=== PATIENT | female | born 1955 | race Caucasian/White ===

== ENCOUNTER 2024-06-06 01:03 | Day surgery (SDC) | payer MEDICARE, SELFPAY ==
[2024-05-30 13:11] VITALS: BMI 19.3
--- NOTE | 2024-05-30 13:23 | PC.NURSE ---
Report to the Outpatient Waiting Room, entrance under the green pavilion located off [facility], at time __0700am on date _06/06/24 . Planned Procedure Time: _0900am .? Time changes happen often and if your time is changed the preop area will call you the afternoon before. - You and your visitor will be asked to self-screen and do not enter if you have any COVID symptoms. Please call surgeon if you need to reschedule. - A mask is optional within the hospital at this time. Patients may have clear liquids (water, carbonated beverages, clear teas, apple juice) until 3 hours prior to surgery with a maximum of 20 ounces. - No food from midnight until time of surgery and no smoking, or chewing tobacco (or any form of nicotine). No chewing gum, candy or mints. (0600am) Take only the following medications with a SIP of water on the morning of surgery: None DO NOT STOP ANY OF YOUR OTHER PRESCRIPTION MEDICATIONS PRIOR TO SURGERY EXCEPT THE FOLLOWING Hold all vitamins and supplements for 3 days per anesthesiologist. Date to take last dose__06/02/24 Please no make-up, nail namibian, hairspray, perfume, deodorant, or body powder the day of surgery.? No jewelry (including any body piercings) or valuables the day of surgery, leave them at home.? Please take a shower or bath the night before, or the morning of, surgery with an antibacterial soap.? Wear comfortable, loose fitting clothing.? - Jewelry must be removed prior to entering the operating room.? Rings and piercings that are not removed may be cut off. - The hospital will not accept responsibility for valuables.? - Please leave all valuables, including medications, at home the day of surgery. If you are going home after surgery, a licensed sweeper driver must drive you home.? - NO public transportation without another adult if you receive anesthesia. - We recommend that an adult stay with you for 24 hours following discharge. - We also recommend that you do not drive, make important decision, drink alcoholic beverages, or take any drugs that were not prescribed by your health care provider for at least 24 hours after your discharge time. Follow any additional instructions given to you from your surgeon. Telephone instructions given to __Patient and asked if any additional questions and then verbalized understanding. Patient advised to call surgeon office or pre surgery nurse liaison [phone] if any additional questions.
--- OUTSIDE RECORDS SUMMARY | 2024-06-06 01:06 | XMS_ITS ---
Author Organization [facility] Planning Address [address] [place] [address] Care Team Providers Care Nuts And Bolts Assembler Name Role Phone Sofi De Leon Primary Care Provider [phone] REASON FOR VISIT Test Results Encounters Encounter Location Date Provider Diagnosis [address] [address] 04/08/2024 Sofi Aaron Plan Of Treatment No Information Progress Notes * Yesika CHARLESOB: [birth year] (68 yo F)Acc No.[id number]:04/08/2024 Patient: Kevin YISELEFERomelia :1955 A ge:68 Y S ex:Female Address:[address], [place], [address] * true * Date: Generated for Desiraei ng/Faelenog/eTransmitting on: 0 06/06/2024 01:06 AM FRAME ASSEMBLER
--- OUTSIDE RECORDS SUMMARY | 2024-06-06 01:06 | XMS_ITS ---
Author Organization [facility] Planning Address [address] [place] [address] Care Team Providers Care Bradley Linebacker Crewmember Name Role Phone Sofi De Leon Primary Care Provider [phone] REASON FOR VISIT Labs Encounters Encounter Location Date Provider Diagnosis [address] [address] 04/19/2024 Sofi Aaron Plan Of Treatment No Information Progress Notes * Yesika CHARLESOB: [birth year] (68 yo F)Acc No.[id number]:04/19/2024 Patient: Kevin YISELEFERomelia :1955 A ge:68 Y S ex:Female Address:[address], [place], [address] * true * Date: Generated for Desiraei ng/Faelenog/eTransmitting on: 0 06/06/2024 01:05 AM TRAFFIC SIGNAL SUPERVISOR MAINTENANCE
--- OUTSIDE RECORDS SUMMARY | 2024-06-06 01:06 | XMS_ITS ---
Author Organization [facility] Planning Address [address] [place] [address] Care Team Providers Care Heavy Coil Winder Name Role Phone Sofi De Leon Primary Care Provider [phone] REASON FOR VISIT Test Results Encounters Encounter Location Date Provider Diagnosis [address] [address] 04/27/2024 Sofi Aaron Plan Of Treatment No Information Progress Notes * Yesika CHARLESOB: [birth year] (68 yo F)Acc No.[id number]:04/27/2024 Patient: Kevin YISELEFERomelia :1955 A ge:68 Y S ex:Female Address:[address], [place], [address] * true * Date: Generated for Desiraei ng/Faelenog/eTransmitting on: 0 06/06/2024 01:06 AM HEAD PORTER BAGGAGE
--- OUTSIDE RECORDS SUMMARY | 2024-06-06 01:06 | XMS_ITS | Patient Health Record ---
Author Organization [facility] OF [facility] Address [address] [facility] [address] [place] [address] Care Team Providers Care Procedure Writer Name Role Phone UNKNOWN, UNKNOWN Primary Care Provider Cash Love Unavailable Allergies Allergen (clinical drug ingredient) Drug/Non Drug Allergy documented on EMR Reaction Allergy Type Onset Date Status No Known Drug Allergy Unknown Drug Allergy Active No Known Food Allergy Unknown Drug Allergy Active Reason For Referral No Information Medications Medication SIG (Take, Route, Frequency, Duration) Notes Start Date End Date Status Estradiol Active Multivitamin Active Social History Tobacco Use: Social History Observation Description Date Details (start date - stop date) Never Smoker NA - NA Tobacco Use/Smoking Question Answer Notes Are you a nonsmoker Problems Problem Type SNOMED Code ICD Code Onset Dates Problem Status W/U Status Risk Notes Problem 867864431 Porokeratosis (Q82.8) Active confirmed Problem 976158197 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 Problem 157011581 Plantar fat pad atrophy of right 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
--- OUTSIDE RECORDS SUMMARY | 2024-06-06 01:07 | XMS_ITS | Clinical Summary ---
Author Organization [facility] Address [address] [place] [address] Care Team Providers Care Welder Gas Name Role Phone Unavailable Primary Care Provider Unavailabl e Social History Tobacco Use Types Packs/Day Years Used Date Smoking Tobacco: Never Assessed Comments Unknown Sex and Gender Information Value Date Recorded Sex Assigned at Not on file Legal Sex Female 5:36 PM CDT Gender Identity Not on file Sexual Orientation Not on file Last Filed Vital Signs Vital Sign Reading Time Taken Comments Blood Pressure 118/72 01/22/2018 10:21 AM CDT Pulse 78 01/22/2018 10:21 AM CDT Temperature - - Respiratory Rate - - Oxygen Saturation - - Inhaled Oxygen Concentration - - Weight 80.5 kg (177 lb 7 oz) 01/22/2018 10:21 AM CDT Height 177.8 cm (5' 10 ) 01/22/2018 10:21 AM CDT Body Mass Index 25.46 01/22/2018 10:21 AM CDT Plan of Treatment Health Maintenance Due Date Last Done Comments Colorectal Cancer Screening Colonoscopy (10 Years) 1955 Hepatitis C 10/08/1973 DTaP, Tdap and Td Vaccines ( 1 - Tdap) 10/08/1974 Mammogram Screening 1995 Zoster Vaccines (1 of 2) 10/08/2005 Dexa Scan (General) 10/08/2020 Pneumococcal Vaccine: 65+ Ye ars (1 of 1 - PCV) 10/08/2020 COVID-19 Vaccine ( - 2023-2 5 season) 2023 Influenza Adult (#1) 2024 01/22/2018 RSV Immunization or 60+ Years (1 - 1-dose 75+ series) 10/08/2030 Meningococcal B Vaccine Aged Out No l onger eligible based on patient's age to complete this topic Meningococcal Vaccine Aged Out No sandra osvaldo eligible based on patient's age to complete this topic RSV Immunizations Under 20 Months Aged Out No longer eligible based on patient's age to complete this topic
--- OUTSIDE RECORDS SUMMARY | 2024-06-06 01:07 | XMS_ITS ---
Author Organization 1 OF [facility] Address [address] [place] [address] Care Team Providers Care Vice President Industrial Relations Name Role Phone UNKNOWN, UNKNOWN Primary Care Provider Cash Love Unavailable [phone] Encounters Encounter Location Date Provider Diagnosis [facility] [address] [place] [address] 01/12/2023 Cash Hilton Plan Of Treatment No Information Progress Notes * Yesika CHARLESOB: [birth year] (67 yo F)Acc No.[id number]:01/12/2023 Patient: Kevin singh Romelia :1955 A ge:67 Y S ex:Female Address:[address] [place] [address] * true * Date: Generated for Ashley myers/Shweta/eTransmitting on: 0 06/06/2024 01:06 AM FINANCE INSURANCE MANAGER
--- OUTSIDE RECORDS SUMMARY | 2024-06-06 01:07 | XMS_ITS ---
Author Organization [facility] Address [address] [facility] [address] [place], [place] [address] Care Team Providers Care Rural Carrier Associate Name Role Phone Answer, Declined Unavailable Unavailable YASMINE LONG Unavailable [phone] REASON FOR VISIT The patient reports that the last treatment for her porokeratosis in November lasted until just recently. The lesions hurt and feel like stepping on a pebble Vital Signs Height 70 in 07/01/2023 Weight 145 lbs 07/01/2023 BMI 20.8 kg/m2 07/01/2023 Height-cm 177.8 cm 07/01/2023 Weight-kg 65.77 kg 07/01/2023 Encounters Encounter Location Date Provider Diagnosis [facility] [address] [facility] [address] [place], [place] [id number] 07/01/2023 YASMINE LONG Other eccrine sweat disorders L74.8 ; Metatarsalgia, left foot M77.42 and Left foot pain M79.672 Assessments Encounter Date Diagnosis (ICD Code) Assessment Notes Treatment Notes Treatment Clinical Notes Section Notes 07/01/2023 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 The patient was given after care instructions. Follow up in two weeks to debride and re-ablate as needed. 07/01/2023 Metatarsalgia, left foot (ICD-10 - M77.42) Metatarsalgia: I discussed anti-inflammatory treatment options and various means of immobilization with the patient. I educated the patient on icing and stretching, supportive shoegear, and the use of orthotic devices and bracing. 07/01/2023 Left foot pain (ICD-10 - M79.672) Plan Of Treatment Treatment Notes Assessment Notes Other eccrine sweat disorders Porokeratosis: The lesions were debrided to normal appearing skin and then chemically ablated with pyrogallic acid and covered with an occlusive dressing. The patient was given after care instructions. Follow up in two weeks to debride and re-ablate as needed. Metatarsalgia, left foot Metatarsalgia: I discussed anti-inflammatory treatment options and various means of immobilization with the patient. I educated the patient on icing and stretching, supportive shoegear, and the use of orthotic devices and bracing. Next Appt Details Follow Up: 3 Weeks, Reason: Debride and ablate as needed Progress Notes * Yesika GALEOB: [birth year] (68 yo F)Acc No.[id number]:07/01/2023 Patient: Romelia NEAL Provider: Kevin Long DPM :1955 A ge:67 Y S ex:Female Date:07/01/2023 Address:[address] [place], [place] [id number] Subjective: * Chief Complaints: * 1 . The patient reports that the last treatment for her porokeratosis in November lasted until just recently. The lesions hurt and feel like stepping on a pebble. * HPI: H PI: New Complaint E stablished patient presents with a new complaint. P atient complains of an issue to pain on the lateral side of the left foot due to a Callus. Patient has been treated for this in the past. Patient states it has been painful since returning. D uration of problem is 3 months. P atient denies any injury. M A:SS. * ROS: G eneral / Constitutional: Patient denies c hills, fever, weakness, night sweats. M usculoskeletal: Patient denies c hildhood foot problems, weakness. P atient complains of j oint pain. P eripheral Vascular: Patient denies u lceration of feet, cold extremities. ? S kin: Patient denies u lcerations, discoloration. P atient complains of c alluses and corns. N eurologic: Patient denies b alance difficulty, confusion, difficulty speaking, dizziness. * Medical History: C olon cancer, Leg/Feet cramps, Varicose veins, Phlebitis, GERD. Objective: * Vitals: W t:145lbs, Wt-k.77 kg, Ht: 70 in, Ht-cm: 177.8 cm, BMI:20.8Index, Body Surface Area: 1.8. * Examination: C onstitutional: Constitutional T he patient is awake, alert, well developed, well groomed and well nourished.. D ermatologic: Skin findings: S kin is warm, dry, supple with no breaks in the skin.. Hypertrophic / hyperkeratotic lesion: h yperkeratotic skin lesion to the plantar aspect of the left 5th metatarsal head. Debridement demonstrates a nucleated core. V ascular: Dorsalis pedis pulse: 2 /4, bilateral. Posterior tibial pulse: 2 /4, bilaterally. Capillary refill: l ess than 3 seconds. Edema: N o edema, bilateral. N eurologic: Gross sensation G ross sensation is intact to light touch..? M usculoskeletal: Muscle Strength M uscle strength is 5/5 in regards to dorsiflexion, plantarflexion, inversion, and eversion in bilateral lower extremities.. Pain on palpation p ain on palpation to the 5th metatarsal head of the left foot. Assessment: * Assessment: 1. M etatarsalgia, left foot - M77.42 (Primary) 2 . O ther eccrine sweat disorders - L74.8 3 . L eft foot pain - M79.672 Plan: * Treatment: 2. O ther eccrine sweat disorders Notes: Porokeratosis: The lesions were debrided to normal appearing skin and then chemically ablated with pyrogallic acid and covered with an occlusive dressing. The patient was given after care instructions. Follow up in two weeks to debride and re-ablate as needed. * Follow Up: 3 Weeks (Reason: Debride and ablate as needed) * Billing Information: * Visit Code: 85087 Office Visit, Est Pt., Level 3. * Procedure Codes: * Sign off status: Completed true * Provider: Kevin Long DPM Date: 0 07/01/2023 Generated for Ashley Fitzgerald/Jesus on: 0 06/06/2024 01:07 AM REPLANTING MACHINE CREWMAN History and Physical Notes * HPI (History of Present Illness) Category Sub-Category Detail Notes Category Not es HPI New Complaint Established jordyn ent presents with a new complaint. Patient complains of an issue to pain on the lateral side of the left foot due to a Callus. Patient has been treated for this in the past. Patient states it has been painful since returning. Duration of problem is 3 months. Patient denies any injury. MA:SS Examination Category Sub-Category Detail Notes Category Not es Dermatologic Skin findings: Skin is warm, dr y, supple with no breaks in the skin. Hypertrophic / hyperkeratotic lesion: hy perkeratotic skin lesion to the plantar aspect of the left 5th metatarsal head. Debridement demonstrates a nucleated core Neurologic Gross sensation Gross sensation is intact to light touch. Vascular Dorsalis pedis pulse: 2/4, bilateral Edema: No edema, bilateral Capillary refill: less than 3 seconds Posterior tibial pulse: 2/4, bilaterally Musculoskeletal Muscle Strength Muscle strength is 5/5 in regards to dorsiflexion, plantarflexion, inversion, and eversion in bilateral lower extremities. Pain on palpation pain on palpation to the 5th metatarsal head of the left foot Constitutional Constitutional The patient is a wake, alert, well developed, well groomed and well nourished.
--- OUTSIDE RECORDS SUMMARY | 2024-06-06 01:08 | XMS_ITS | Clinical Summary ---
Author Organization [facility] [employer] Address [address] [place] [address] Care Team Providers Care Glass Loading Equipment Tender Name Role Phone Unavailable Primary Care Provider Unavailabl e Source Comments [facility] [employer],non-owned Affiliates and Associated Physician Practices is amultiple site organization consisting of ambulatory clinics and hospital sitesin [place], [place], [place] and [place]. This disclosure is being madepursuant to the Care Everywhere program and may not contain all information available regarding this patient. Last updated 18.[employer] Allergies No known active allergies Medications * Be aware that medications may not be up to date on this document. Alwaysverify current medications with the patient. Medication Sig Dispensed Refills Start Date End Date Status estradiol (CLIMARA) 0.06 MG/24HR patch Apply 1 patch to skin every 7 days Active progesterone 300 mg ERT 300 mg tablet Take 300 mg by mouth once daily Active Immunizations Name Administration Dates Next Due INFLUENZA VACCINE, QUADR. (F LUZONE; FLULAVAL; FLUARIX; AFLURIA QUADRIVALENT; 6MO+), 0.5 ML (IIV4) 01/10/2019 Social History Tobacco Use Types Packs/Day Years Used Date Smoking Tobacco: Never Smokeless Tobacco: Never Sex and Gender Information Value Date Recorded Sex Assigned at Not on file Gender Identity Not on file Sexual Orientation Not on file Last Filed Vital Signs Vital Sign Reading Time Taken Comments Blood Pressure 114/82 07/15/2018 3:30 PM CDT Pulse 90 07/15/2018 3:30 PM CDT Temperature 36.8 C (98.2 F) 07/15/2018 3:30 PM CDT Respiratory Rate 20 07/15/2018 3:30 PM CDT Oxygen Saturation 98% 07/15/2018 3:30 PM CDT Inhaled Oxygen Concentration - - Weight 78 kg (172 lb) 07/15/2018 3:30 PM CDT Height 179.1 cm (5' 10.5 ) 07/15/2018 3:30 PM CD T Body Mass Index 24.33 07/15/2018 3:30 PM CDT Plan of Treatment Health Maintenance Due Date Last Done Comments COLOGUARD (AGES 45-75) - COLON CA SCREENING 1955 COLON MONITORING 1955 COLONOSCOPY - COLON CA SCREENING 1955 CT COLONOGRAPHY - COLON CA SCREENING 1955 Colorectal Cancer Screening 1955 FIT - COLON CA SCREENING 1955 FLEX SIG - COLON CA SCREENING 1955 LIPID TESTING 1955 HEPATITIS C SCREENING 10/04/1973 DTAP/TDAP/TD VACCINES (1 - Tdap) 10/08/1974 PNEUMOCOCCAL VACCINE 50+ (1 of 1 - PCV) 10/08/2005 ZOSTER VACCINE (1 of 2) 10/08/2005 COVID-19 VACCINE (4 - season) 2023 02/28/2021, 06/20/2020, 05/15/2020 INFLUENZA VACCINE (#1) 2023 , 01/10/2019, 01/22/2018, Additional history exists DEPRESSION SCREENING 04/20/2024 MAMMOGRAM 02/18/2025 02/18/2023, 11/0 04/2022, 01/09/2022, Additional history exists Respiratory Syncytial Virus (RSV) Vaccine Pt: or over 60 yrs (1 - 1-dose 75+ series) 10/08/2030 BONE DENSITY TESTING Completed 02/07/2022, 09/28/2017, 10/13/2013 HEPATITIS B VACCINE Aged Out No longe r eligible based on patient's age to complete this topic HIB VACCINE Aged Out No longer eligi ble based on patient's age to complete this topic HPV VACCINE Aged Out No longer eligi ble based on patient's age to complete this topic MENINGOCOCCAL (Group B) VACCINE Aged Out No longer eligible based on patient's age to complete this topic MENINGOCOCCAL VACCINE Aged Out No sandra osvaldo eligible based on patient's age to complete this topic [facility] [employer] Employer [phone] (Work) [address] [place] [address] Romelia Charles Personal/Family Self 1955 [address] [place] [address]
--- OUTSIDE RECORDS SUMMARY | 2024-06-06 01:08 | XMS_ITS ---
Author Organization [facility] Address [address] [place], [place] [address] Care Team Providers Care Software Quality Automation Engineer Name Role Phone Answer, Declined Unavailable Unavailable YASMINE LONG Unavailable [phone] REASON FOR VISIT The patient tolerated the chemical ablation well. The porokeratosis on her left foot no longer hurts like it did Vital Signs Height 70 in 07/22/2023 Weight 145 lbs 07/22/2023 BMI 20.8 kg/m2 07/22/2023 Height-cm 177.8 cm 07/22/2023 Weight-kg 65.77 kg 07/22/2023 Encounters Encounter Location Date Provider Diagnosis [facility] [address] [facility] [address] [place], [place] [id number] 07/22/2023 YASMINE LONG Other eccrine sweat disorders L74.8 ; Metatarsalgia, left foot M77.42 and Left foot pain M79.672 Assessments Encounter Date Diagnosis (ICD Code) Assessment Notes Treatment Notes Treatment Clinical Notes Section Notes 07/22/2023 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 No evidence of porokeratosis noted. Patient advised to monitor this area, as well as to use emollients and keep pressure off this area with padding, inserts, or orthotics. Emollient: Recommend that the patient use an emollient such as osjf-uho-pwoyhia Eucerin cream, Vanicream, or other lotion to the affected area. 07/22/2023 Metatarsalgia, left foot (ICD-10 - M77.42) Metatarsalgia: I discussed anti-inflammatory treatment options and various means of immobilization with the patient. I educated the patient on icing and stretching, supportive shoegear, and the use of orthotic devices and bracing. 07/22/2023 Left foot pain (ICD-10 - M79.672) Plan Of Treatment Treatment Notes Assessment Notes Other eccrine sweat disorders Porokeratosis Resolved: The nonviable tissue was sharply debrided down to normal healthy appearing skin. No evidence of porokeratosis noted. Patient advised to monitor this area, as well as to use emollients and keep pressure off this area with padding, inserts, or orthotics. Emollient: Recommend that the patient use an emollient such as cjca-jha-mdoypya Eucerin cream, Vanicream, or other lotion to the affected area. Metatarsalgia, left foot Metatarsalgia: I discussed anti-inflammatory treatment options and various means of immobilization with the patient. I educated the patient on icing and stretching, supportive shoegear, and the use of orthotic devices and bracing. Next Appt Details Follow Up: prn, Reason: Progress Notes * JACKIECATHERINEYesikaOB: [birth year] (68 yo F)Acc No.[id number]:07/22/2023 Patient: Romelia NEAL Provider: Kevin Long DPM :1955 A ge:67 Y S ex:Female Date:07/22/2023 Address:[address] [place], [place] [id number] Subjective: * Chief Complaints: * 1 . The patient tolerated the chemical ablation well. The porokeratosis on her left foot no longer hurts like it did. * HPI: H PI: Follow Up Visit Chaim dao presents for follow up visit for Porokeratosis check on lateral side of the left foot. Chaim dao states their problem is improving. Patient states she has no complaints. M A:SS. * ROS: G eneral / [...] confusion, difficulty speaking, dizziness. * Medical History: Objective: * Vitals: W t:145lbs, Wt-k.77 kg, [...] 2. O ther eccrine sweat disorders Notes: Porokeratosis Resolved: The nonviable tissue was sharply debrided down to normal healthy appearing skin. No evidence of porokeratosis noted. Patient advised to monitor this area, as well as to use emollients and keep pressure off this area with padding, inserts, or orthotics. Emollient: Recommend that the patient use an emollient such as rolq-gfd-hqiyikk Eucerin cream, Vanicream, or other lotion to the affected area. * Follow Up: p rn * Billing Information: * Visit Code: 72873 Office Visit, Est Pt., Level 3. * Procedure Codes: * Sign off status: Completed true * Provider: Kevin Long DPM Date: 0 07/22/2023 Generated for Ashley myers/Shweta/Jesus on: 0 06/06/2024 01:07 AM COOK ENCHILADA History and Physical Notes * HPI (History of Present Illness) Category Sub-Category Detail Notes Category Not es HPI Follow Up Visit Patient presents for follow up visit for Porokeratosis check on lateral side of the left foot. Patient states their problem is improving. Patient states she has no complaints. MA:SS Examination Category Sub-Category Detail Notes Category [...]
--- OUTSIDE RECORDS SUMMARY | 2024-06-06 01:08 | XMS_ITS | Referral Summary ---
Author Organization [facility] [employer] Address [address] [place] [address] Care Team Providers Care Rfid Manager Name Role Phone Unavailable Primary Care Provider Unavailabl e Source Comments [facility] [employer],non-owned Affiliates and Associated Physician Practices is amultiple site organization consisting of ambulatory clinics and hospital sitesin [place], [place], [place] and [place]. This disclosure is being madepursuant to the Care Everywhere program and may not contain all information available regarding this patient. Last updated 18.[employer] Allergies No known active allergies Medications * [...] 07/15/2018 3:30 PM CDT Plan of Treatment Not on file [facility] [employer] [phone] (Work) [address] [place] [address] Romelia Charles Personal/Family Self 1955 [address] [place] [address]
--- OUTSIDE RECORDS SUMMARY | 2024-06-06 01:08 | XMS_ITS | Patient Health Summary ---
Author Organization [facility] Address [address] 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 This disclosure is being madepursuant to the Care Everywhere program and may not contain all information available regarding this patient. Last updated 18.[facility] Allergies No known active allergies Medications * Be aware that medications may not be up to date on this document. Alwaysverify current medications with the patient. * estradiol (CLIMARA) 0.06 MG/24HR patch Apply 1 patch to skin every 7 days * progesterone 300 mg ERT 300 mg tablet Take 300 mg by mouth once daily Immunizations * INFLUENZA VACCINE, QUADR. (FLUZONE; FLULAVAL; FLUARIX; AFLURIA QUADRIVALENT; 6MO+), 0.5 ML (IIV4)(Given 01/10/2019) Social History Tobacco Use Types Packs/Day Years [...] Mass Index 24.33 07/15/2018 3:30 PM CDT Procedures * DERMATOPATHOLOGY(Performed 09/02/2021) * DERMATOPATHOLOGY(Performed 09/25/2020) * DERMATOPATHOLOGY(Performed 09/04/2020) * XR ANKLE RIGHT 3VW OR MORE(Performed 07/15/2018) Performed for Acute right ankle pain * DERMATOPATHOLOGY(Performed 05/19/2014) Results * DERMATOPATHOLOGY (09/02/2021 12:00 AM CDT) Only the most recent of4 resultswithin the time period is included. Case Report Dermatopathology Report Case: [id number] Authorizing Provider: Luz Cole DO Collected: 09/02/2021 12:00 AM Ordering Location: [facility] D[facility] Lab Received: 09/03/2021 11:38 AM Pathologist: Keily Greco MD Specimen: Skin, right ant le 12:22 PM CDT DERMATOPATHOLOGY LABORATORY Final Diagnosis Specimen A. 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 The specimen consists of a shave biopsy measuring 5x4x1 mm. Jar 0. 12:22 PM CDT DERMATOPATHOLOGY LABORATORY Microscopic Description Specimen A. SKIN, right ant le: There is focal parakeratosis and spongiosis. The dermis shows a superficial and deep, perivascular and interstitial infiltrate of lymphocytes and eosinophils. Many of the eosinophils are present in the papillary dermis and occasional eosinophils are noted within the epidermis. COMMENT: The histological differential diagnosis includes contact dermatitis, the urticarial phase of bullous pemphigoid, and a hypersensitivity reaction. If there is clinical concern for a diagnosis of bullous pemphigoid consideration should be given to submitting tissue for direct immunofluorescence. 2 12:22 PM CDT DERMATOPATHOLOGY LABORATORY Disclaimer An external and internal positive and negative controls are appropriate for the histochemical, immunohistochemical and immunofluorescence stain(s) in this case (if any), except where stated explicitly. The performance characteristics of the stain(s) cited in this report were developed and its performance characteristic determined by the Dermatopathology Laboratory at [facility], directed by Dr. Niki Carballo. These tests need not be, and therefore are not, approved by the [place] Food and Drug Administration. The tests are used for clinical purposes. Billing Codes Specimen Charges Stain Charges 69504 1 2 12:22 PM CDT DERMATOPATHOLOGY LABORATORY Embedded Images 2 12:22 PM CDT DERMATOPATHOLOGY LABORATORY Pathology/Cytolog y TISSUE SPECIMEN FROM SKIN / Unknown 09/02/2021 09/03/2021 11:38 AM CDT Luz Cole DO LAB - PATHOLOGY/C YTOLOGY ORDERABLES DERMATOPATHOLOGY LABORATORY [facility] - Department of Dermatology [address] [phone] * XR ANKLE RIGHT 3VW OR MORE (07/15/2018 3:53 PM CDT) Anatomical Region Laterality Modality Lower Extremity Radiographic Vilma ging 07/15/2018 3:58 PM CDT Narrative 07/15/2018 3:58 PM CDT PROCEDURE: XR ANKLE RIGHT 3VW OR MORE 07/15/2018 3:58 PM HISTORY: Pain in right ankle and joints of right foot. COMPARISON: None Report: No displaced fracture, dislocation or aggressive bone lesion seen. Moderate soft tissue swelling about the lateral malleolus and probable small effusion. No radiopaque foreign body seen. Procedure Note Gerald Suh MD - 07/15/2018 PROCEDURE: XR ANKLE RIGHT 3VW OR MORE 07/15/2018 3:58 PM HISTORY: Pain in right ankle and joints of right foot. COMPARISON: None Report: No displaced fracture, dislocation or aggressive bone lesion seen. Moderate soft tissue swelling about the lateral malleolus and probable small effusion. No radiopaque foreign body seen. Aundrea Gregory APRN-COMMERCIAL FINANCE ANALYST DIAGNOSTIC IMAG ING ORDERABLES
--- OUTSIDE RECORDS SUMMARY | 2024-06-06 01:08 | XMS_ITS | Patient Health Record ---
Author Organization [facility] Planning Address [address] [address] Care Team Providers Care Candle Molder Name Role Phone Sofi De Leon Primary Care Provider Allergies No Known Allergies Results Component Value Reference Range Notes LIPID PANEL Reviewed date:04/27/2024 11:23:09 AM Interpretation: Performing Lab: Notes/Report: LDL-CHOLESTEROL 86 Reason For Referral No Information Medications Medication SIG (Take, Route, Fr equency, Duration) Notes Start Date End Date Status Estradiol 0.05 MG/24HR 1 patch to skin T ransdermal Two times a Week for 30 day(s) Active Progesterone 100 MG 3 caps Orally daikly Active Lexapro 10 MG 1 tablet Orally Once a day for 30 days 09/01/2023 Active Immunizations Vaccine Route Administration Date Status Comme nts Moderna Bivalent Covid-19 Va ccine 12 & UP BOOSTER Unknown 01/28/2022 Administered [id number]-ABWMU-07 Vaccine Unknown 05/15/2020 Administere d Wfosavu-SCDYN-76 Vaccine Unknown 06/20/2020 Administere d Qfxoyfb-GMCJK-23 Vaccine Unknown 09/06/2021 Administere d Non VFC Boostrix Unknown 09/13/2020 Administered Non VFC Fluarix Quad Unknown 02/17/2017 Administered Non VFC Fluarix Quad Unknown 01/22/2018 Administered Non VFC Fluarix Quad Unknown 01/10/2019 Administered Non VFC Flulaval Unknown 02/09/2020 Administered Non VFC TD adsorbed Unknown 12/09/1995 Administered PfizerAddonTV Covid-19 Vac cine (STATE STOCK) Unknown 02/28/2021 Administered X Fluad, Quad Unknown 03/03/2022 Administered X Fluad, Quad Unknown 02/28/2023 Administered X Flucelvax Quad Unknown 01/17/2016 Administered X Fluzone HD, Quad, Preserv Free Unknown 02/15/2021 Adm inistered Social History Tobacco Use: Social History Observation Description Date Details (start date - stop date) Never Smoker NA - NA Tobacco Use/Smoking Question Answer Notes Are you a nonsmoker Alcohol Screen (Audit-C) Question Answer Notes Did you have a drink contain ing alcohol in the past year? Yes How often did you have a dri nk containing alcohol in the past year? Monthly or less (1 point) Points 1 Interpretation Negative Tobacco use other than smoking: Question Answer Notes Are you an other tobacco user? No DAST Question Answer Notes Total Score: 0 Interpretation: No problems reported DAST-10 (2020 Edition) Question Answer Notes 1. Have you used drugs other than those required for medical reasons? No 2. Do you abuse more than one drug at a time? No 3. Are you always able to st op using drugs when you want to? Yes 4. Have you had blackouts or flashbacks as a result of drug use? No 5. Do you ever feel bad or guilty about your miguel g use? No 6. Does your spouse (or pare nts) ever complain about your involvement with drugs? No 7. Have you neglected your f amily because of your use of drugs? No 8. Have you engaged in illeg al activities in order to obtain drugs? No 9. Have you ever experienced withdrawal symptoms (felt sick) when you stopped taking drugs? No 10. Have you had medical pro blems as a result of your drug use (e.g., memory loss, hepatitis, convulsions, bleeding etc.)? No Results: 0 Interpretation of Score: No problems reported Tobacco Control (Standard) Question Answer Notes Tobacco use: Nonsmoker AUDIT-C (Standard) Question Answer Notes Did you have a drink containing alcohol in the p ast year? 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 Vital Signs Heart Rate 69 /min 09/01/2023 Temperature 97.7 degrees Fahrenheit 09/01/2023 Respiratory Rate 16 /min 09/01/2023 Blood pressure diastolic 75 mm Hg 09/01/2023 Oximetry 95 % 09/01/2023 Height-cm 179.07 cm 09/01/2023 Weight-kg 67.49 kg 09/01/2023 Height 70.5 in 09/01/2023 Blood pressure systolic 134 mm Hg 09/01/2023 Weight 148.8 lbs 09/01/2023 BMI 21.05 kg/m2 09/01/2023 Encounters Encounter Location Date Provider Diagnosis [address] [address] 09/01/2023 Sofi Aaron Hypertension, unspecified type I10 ; Grief reaction F43.21 and Osteopenia of hip, unspecified laterality M85.[address] [address] 08/24/[address] [address] 10/07/2023 Sofi Sweet [address] [address] 11/02/2023 Sofi Sweet [address] [address] 01/26/2024 Sofi Sweet [address] [address] 03/07/2024 Sofi Sweet [address] [address] 04/08/2024 Sofi Sweet [address] [address] 04/27/2024 Sofi Sweet [address] [address] 04/08/2024 Sofi Aaron [facility] [address] [place] [address] 04/19/2024 Sofi Aaron Assessments Encounter Date Diagnosis (ICD Code) Assessment Notes Treatment Notes Treatment Clinical Notes Section Notes 09/01/2023 Hypertension, unspecified type (ICD-10 - I10) will start meds, if not helping let us know, if not safe will go to er or call us, is taking calcium for osteopenia 09/01/2023 Grief reaction (ICD-10 - F43.21) will start meds, if not helping let us know, if not safe will go to er or call us, is taking calcium for osteopenia 09/01/2023 Osteopenia of hip, unspecified laterality (ICD-10 - M85.859) will start meds, if not helping let us know, if not safe will go to er or call us, is taking calcium for osteopenia 09/01/2023 Other is eating, is mourning , working on getting things together, will get labs, , Escitalopram Oral Tablet (ESCITALOPRAM - ORAL) [FDB] material was published will start meds, if not helping let us know, if not safe will go to er or call us, is taking calcium for osteopenia Plan Of Treatment No Information Insurance Providers Payer Name Payer Address Payer Phone Subscriber Number Group Number Insured Name Patient Relationship to Insured Coverage Start Date Coverage End Date [place] [employer] [address] [place], [place] [id number] Romelia Charles Self - patient is the insured 3 Aet[employer] II [address] [place], [place] [id number] Romelia Charles Self - patient is the insured 3 Medical (General) History Medical History History ICD Code HTN Surgical History Surgery Date(Month/Year) skin cancer off chin 2020 microphelpectomy
[2024-06-06 07:08] VITALS: BP 141/68; PULSE 72; RESP 18; TEMP 37.1; O2SAT 100
--- NOTE | 2024-06-06 07:20 | WPDHPUPDATE1 ---
History and Physical Update Update Date/Time: 06/06/24 07:20 History and Physical has been reviewed, including an updated exam of the patient. There are NO changes in the patient's condition. Risks, benefits, and alternatives have been discussed and questions answered. Patient agrees to proceed with procedure.
--- NOTE | 2024-06-06 07:20 | PM.HPGS ---
History of Present Illness History of Present Illness Consent: Risks, benefits, and alternatives have been discussed and questions answered. Patient agrees to proceed with procedure. Chief complaint: Thickened Endometrium Narrative: Romelia Charles is a 68 year old female with a pelvic ultrasound showing a thickened endometrium at 1.6cm. Patient denies vaginal bleeding. It was recommended to undergo evaluation with hysteroscopy D&C. Risks of infection, bleeding, perforation, and possible pathology are reviewed. Review of Systems Review of Systems: not repeated day of surgery; patient states no changes in status PMFSH Past Medical History Medical History (Updated 06/06/24 @ 07:25 by Navya Parks MD) Basal cell carcinoma on her nose removed 2014 (normal spontaneous vaginal delivery) x1 HTN (hypertension) Colon cancer 2010 Endometriosis Mitral valve prolapse Surgical History Surgical History (Updated 06/06/24 @ 07:24 by Navya Parks MD) History of colon resection History of bilateral tubal ligation with History of x1 History of laparoscopy x2 status post right oophorectomy Social History Social History Smoking status: Never smoker Alcohol intake: never Substance use: never Living arrangements: alone Spiritual care concerns: No Meds Home Medications and Allergies Home Medications ?Medication ?Instructions ?Recorded ?Confirmed ?Type ascorbic acid (vitamin C) 500 mg 500 mg PO DAILY 05/30/24 05/30/24 History chewable tablet (Fruit C-500) cholecalciferol (vitamin D3) 50 50 mcg PO DAILY 05/30/24 05/30/24 History mcg (2,000 unit) capsule (Vitamin D3) estradiol 0.06 mg/24 hr weekly 1 patch topical WEEKLY 05/30/24 05/30/24 History transdermal patch melatonin 5 mg capsule 5 mg PO HS PRN sleep 05/30/24 05/30/24 History afbkxyxg-dwnihjg-xnty-lutein tablet 1 tablet PO DAILY 05/30/24 05/30/24 History progesterone micronized 100 mg 300 mg PO HS 05/30/24 05/30/24 History capsule Allergies Allergy/AdvReac Type Severity Reaction Status Date / Time No Known Allergies Allergy Verified 05/30/24 13:05 Vital Signs Vital Signs - 24 hr 06/06/24 07:08 Temperature 98.7 F Pulse Rate 72 Respiratory Rate 18 Blood Pressure 141/68 H Pulse Oximetry 100 Oxygen Delivery Room Air Exam Const: General: healthy appearing and alert Orientation/consciousness: patient oriented x3 Resp: Effort & Inspection: normal respiratory effort GI: GI Palp: Yes Soft to palpation, No Tenderness to palpation present (GI) and No Palpable mass present : External Female Exam: normal external appearance Speculum Exam - Vagina: normal appearance of the vagina and normal vaginal discharge Speculum Exam - Cervix: normal appearance of the cervix Bimanual exam- vagina & uterus: uterine size normal and consistency normal Bimanual Exam- Adnexa, other: normal adnexae and No adnexal tenderness Neuro: General: patient oriented x3 Assessment and Plan Assessment and plan (1) Thickened endometrium: Code(s): R93.89 - Abnormal findings on diagnostic imaging of other specified body structures Status: Acute Assessment and Plan: plan to proceed with D&C hysteroscopy
[2024-06-06] MEDS: ACETAMINOPHEN 500 MG TABLET 1000 MG PO (07:45)
--- NOTE | 2024-06-06 08:58 | P.PNAN_ITS ---
Anes - Initial Pre Proc Eval Procedure: Operation Date: 06/06/24 09:30 Proposed Procedures p Hysteroscopy Dilation and Curettage - Navya Parks MD Date/Time: 06/06/24 08:58 Surgeon: Navya Parks MD Pre Op Diagnosis: Thickened Endometrium Patient Data Age: 68 Gender: F Height: 1.78 m Weight: 62.6 kg Last Vital Signs Temp 37.1 C 06/06/24 07:08 Pulse 72 06/06/24 07:08 Resp 18 06/06/24 07:08 BP 141/68 H 06/06/24 07:08 Pulse Ox 100 06/06/24 07:08 O2 Del Method Room Air 06/06/24 07:08 Allergies Allergy/AdvReac Type Severity Reaction Status Date / Time No Known Allergies Allergy Verified 06/06/24 08:06 Home Medications ?Medication ?Instructions ?Recorded ?Confirmed ?Type ascorbic acid (vitamin C) 500 mg 500 mg PO DAILY 05/30/24 06/06/24 History chewable tablet (Fruit C-500) cholecalciferol (vitamin D3) 50 50 mcg PO DAILY 05/30/24 06/06/24 History mcg (2,000 unit) capsule (Vitamin D3) estradiol 0.06 mg/24 hr weekly 1 patch topical WEEKLY 05/30/24 05/30/24 History transdermal patch melatonin 5 mg capsule 5 mg PO HS PRN sleep 05/30/24 05/30/24 History ndftahng-cxohcpi-nrpo-lutein tablet 1 tablet PO DAILY 05/30/24 06/06/24 History progesterone micronized 100 mg 300 mg PO HS 05/30/24 05/30/24 History capsule Patient hx anesthesia problems: none Family hx anesthesia problems: none Results Review: All pre-operative results and documents have been reviewed as part of the pre- operative evaluation. [facility] Past Medical History Medical History (Updated 06/06/24 @ 07:25 by Navya Parks MD) Basal cell carcinoma on her nose removed 2014 (normal spontaneous vaginal delivery) x1 HTN (hypertension) Colon cancer 2010 Endometriosis Mitral valve prolapse Surgical History Surgical History (Updated 06/06/24 @ 07:24 by Navya Parks MD) History of colon resection History of bilateral tubal ligation with History of x1 History of laparoscopy x2 status post right oophorectomy Social History Social History Smoking status: Never smoker Alcohol intake: never Substance use: never Living arrangements: alone Spiritual care concerns: No Anes - Eval Final PreProcedure Day of Procedure 06/06/24 08:58 Patient weight: normal Heart: regular rate and rhythm Lungs: clear to auscultation and normal air movement Airway: Mallampati scale class II Neurological: alert and oriented Last oral intake: >/= 8 hours ASA classification: II Emergent: no Anesthetic plan: proceed Anesthesia type and monitoring: general GIVS and standard monitoring Results Review: All pre-operative results and documents have been reviewed as part of the pre- operative evaluation. Informed Consent: The patient's anesthetic plan and its attendant risks and benefits were discussed with the patient/family/POA. Questions were solicited and answers provided to the satisfaction of the patient/family/POA.
--- NOTE | 2024-06-06 09:54 | P.OP_ITS ---
Procedure Note - Detailed Date of Procedure 06/06/24 Pre-op Diagnosis Thickened Endometrium Post-op Diagnosis Same Procedure Performed D&C hysteroscopy Surgeon Navya Parks MD Anesthesia MAC Findings Cervical polyp, uterus measures 7cm and appears atrophic with no lesions Description of Procedure The patient was taken to the operating room and placed under anesthesia dorsal lithotomy position. She was prepped and draped in usual sterile fashion. Biva lve speculum was placed in the vagina and the cervix was grasped on the anterior lip with a tenaculum. Cervix has a polyp that was grasped with a ring forcep and removed. The uterus was sounded to 7cm. Hysteroscope was placed and with no abnormalities noted was removed. The sharp curette was used to curette the endometrium until a good cry was noted in all areas. Minimal material was obtained consistent with the atrophic appearance. All instruments are removed. Sponge, needle, and instrument counts are correct per the OR staff. Patient was awakened from anesthesia and taken to recovery in stable condition. Estimated Blood Loss 5 Drains No Packing No Pathology Yes (Endometrial curettings and cervical polyp) Complications No immediate complications Condition Stable Disposition PACU
[2024-06-06 09:56] VITALS: BP 148/67; PULSE 56; RESP 20
[2024-06-06] MEDS: LACTATED RINGERS 1,000 ML 30 ML IV CONT (09:56)
[2024-06-06 10:25] VITALS: BP 148/67; PULSE 56; RESP 20
[2024-06-06 10:50] VITALS: BP 144/62; PULSE 52; RESP 20
== END 2024-06-06 11:05 | disposition home or self-care (01) ==
PROVIDERS: Visit Provider Obstetrics & Gynecology Gynecology
PROC: 0U5B8ZZ Destruction of Endometrium, Via Natural or Artificial Opening Endoscopic (ICD-10-PCS; CPT 58563; principal; 2024-06-06 09:30)
DX: N88.8 Other specified noninflammatory disorders of cervix uteri (principal)
CPT/HCPCS: 58558; 88305; A9270; J2003; J2250; J2405; J2704; J3010; J7120